=== PATIENT | female | born 1975 | race Caucasian/White ===

== ENCOUNTER 2022-03-29 21:12 | Emergency (ER) | payer MEDICAID, MEDICARE ==
[~2022-03-29] VITALS: Ht 162.6 cm; Wt 58.1 kg
--- NOTE | 2022-03-29 21:37 | NUR ---
PT BIBLAPD PLACED ON HOLD C/O DANGER TO SELF/DTO. PT A/OX3. TOLERATING R/A WELL WITH NO RESP DISTRESS. SAFETY MEASURES IN PLACE. SAFETY MEASURES IN PLACE.
--- NOTE | 2022-03-29 21:48 | NUR ---
ON CAR SUPERVISOR AT PT'S BEDSIDE
--- NOTE | 2022-03-29 21:48 | NUR ---
COVID SWAB COLLECTED AND SENT TO LAB
--- NOTE | 2022-03-29 21:48 | NUR ---
OFFERED PT URINE CUP; NOT ABLE TO URINATE AT THIS TIME. WILL TRY AGAIN LATER
[2022-03-29 22:08] LABS: BASOPHILS % (AUTO) 0.6 % (0.0-2.0); EOSINOPHILS % (AUTO) 1.6 % (0.0-6.0); HEMATOCRIT 35 % (33-45); HEMOGLOBIN 11.6 g/dL (11.5-14.8); LYMPHOCYTES # (AUTO) 2.1 K/uL (0.8-4.8); LYMPHOCYTES % (AUTO) 37.1 % (20.0-44.0); MEAN CORPUSCULAR HGB CONC 33 g/dl (31.0-36.0); MEAN CORPUSCULAR VOLUME 96 fL (82-100); MONOCYTES # (AUTO) 0.5 K/uL (0.1-1.30); MONOCYTES % (AUTO) 8.7 % (2.0-12.0); NEUTROPHILS # (AUTO) 2.9 K/uL (1.8-8.9); PLATELET COUNT (AUTO) 216 K/uL (150-450); RED BLOOD CELL COUNT(AUTO) 3.68 MIL/uL (4.0-5.2); WHITE BLOOD COUNT (AUTO) 5.6 K/uL (4.3-11.0)
--- NOTE | 2022-03-29 22:12 | NUR ---
URINE COLLECTED AND SENT TO LAB
[2022-03-29 22:23] LABS: CALCIUM, SERUM 9.4 mg/dL (8.5-10.1); CARBON DIOXIDE 23 mmol/L (21-32); CHLORIDE 105 mmol/L (98-107); CREATININE 0.8 mg/dL (0.6-1.3); GLUCOSE 92 mg/dL (74-106); POTASSIUM 3.1 mmol/L (3.5-5.1); SODIUM SERUM 138 mmol/L (136-145); UREA NITROGEN, BLOOD 17 mg/dL (7-18)
[2022-03-29 22:31] LABS: ALANINE AMINOTRANSFERASE 21 U/L (12-78); ALCOHOL, BLOOD < 3 mg/dL (0-0); ALKALINE PHOSPHATASE 61 U/L (46-116); ASPARTATE AMINOTRANSFERASE 14 U/L (15-37); BILIRUBIN,DIRECT 0.1 mg/dL (0.0-0.2); BILIRUBIN,TOTAL 0.5 mg/dL (0.2-1.0); TOTAL PROTEIN, SERUM 6.9 g/dL (6.4-8.2)
[2022-03-29 22:32] LABS: ACETAMINOPHEN < 10 ug/ml (10-30)
[2022-03-29 23:18] LABS: BILIRUBIN,URINE NEGATIVE (NEGATIVE); COLOR,URINE YELLOW (YELLOW); LEUKOCYTE ESTERASE ,URINE NEGATIVE (NEGATIVE); NITRITE, URINE NEGATIVE (NEGATIVE); PROTEIN,URINE NEGATIVE (NEGATIVE); UGLUCOSE NEGATIVE (NEGATIVE); UROBILINOGEN,URINE 0.2 EU/dL (0.2)
[2022-03-29 23:58] LABS: BACTERIA,URINE Few /HPF (None Seen); SQUAMOUS EPITHELIAL CELL,UR Few /HPF (None Seen); WBC,URINE 0-2 /HPF (0-3)
--- NOTE | 2022-03-30 00:15 | NUR ---
CALLED KAR POPE FROM CRISIS TEAM FOR PSYCH EVAL
--- NOTE | 2022-03-30 03:20 | NUR ---
Noe gonzales in [facility] - 03/30/22 at 0321 by DILLON ANDREINA MARTINEZ
--- NOTE | 2022-03-30 03:21 | NUR ---
ANDREINA FROM CRISIS TEAM AT BEDSIDE.
[2022-03-30] MEDS ORDERED: TRAZODONE 50 MG TABLET PO ONE (03:30)
[2022-03-30] MEDS ORDERED: TRAZODONE 50 MG TABLET ONE (03:38)
--- NOTE | 2022-03-30 05:14 | NUR ---
REC'D A CALL FROM OZ AT [facility]. THEY CAN ACCOMODATE WITH ACCEPTING THE PATIENT ATER 10 AM WHEN THEY HAVE DISCHARGES. NEELIMA AT INTAKE WILL CALL US WITH MORE INFO.
--- NOTE | 2022-03-30 07:21 | NUR ---
REPORT GIVEN TO JOHN PINEDA/JOHN HERRERA
--- NOTE | 2022-03-30 08:50 | NUR ---
JARRELL GAONA [phone] AGUILAR [facility]ILDING I WILL ASSIGN ROOM SP JIMENEZ [id number] [place] [phone]
--- NOTE | 2022-03-30 09:05 | NUR ---
[facility] ACCEPTED THE PATIENT UNDER DR. MARVIN Og , ROOM - 224-1 , GIVE REPORT TO [phone]
--- NOTE | 2022-03-30 09:18 | NUR ---
CALLED SAJAN GALAN TO GIVE REPORT, CALL BACK AFTER 30 MIN PER RN
--- NOTE | 2022-03-30 10:11 | NUR ---
REPORT GIVEN TO LISA LOPEZ
--- NOTE | 2022-03-30 10:15 | NUR ---
[facility] WILL NOT HAVE TRANSPORT FOR FEMALE ATTENDANT UNTIL 1300 PER MERLY.
--- NOTE | 2022-03-30 13:22 | NUR ---
EMT AT BEDSIDE TO PICKUP PT. ENDORSEMENT GIVEN.
[2022-03-30 13:55] VITALS: BP 110/75
== END 2022-03-30 13:57 ==
LOC: ER 21:17
DX: R45.850 Homicidal ideations (principal); F32.9 Major depressive disorder, single episode, unspecified; Z20.822 Contact with and (suspected) exposure to COVID-19
CPT/HCPCS: 99285; 85025; 80048; 80076; 84703; 81001; 36415; 87426; 80143; 80320; 80307; C9803; G0480